=== PATIENT | male | born 1945 ===

== ENCOUNTER 2019-04-02 00:38 | Outpatient (CLI) | payer OTHER, SELFPAY ==
--- NOTE | 2019-04-02 10:00 | DI.NM_ITS ---
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 COMPARISON: No exams were available for comparison FINDINGS: Three-phase imaging shows mildly increased uptake left ankle in comparison with right ankle. Flow kenyon ging, immediate imaging shows mildly increased uptake in the left ankle region of the tibiotalar join t, and delayed imaging shows markedly increased uptake in the region of the tibiotalar joint on the l eft. Whole-body imaging shows mildly increased uptake in the lower lumbar spine consistent with degenerati ve change and nonspecific mildly increased uptake in left tibia compared to right tibia. No other in tense areas of increased uptake seen. The findings as described are nonspecific and could be associated with post traumatic changes or dege nerative change including Charcot arthropathy, however in the clinical setting of suspected osteomyel itis the findings would also be consistent with osteomyelitis at the region of the tibiotalar joint. Radiographs or CT are requested for correlation. White cell scan may be additionally considered.
== END 2019-04-02 00:58 ==
PROVIDERS: PCP Family Medicine; Visit Provider Orthopaedic Surgery Foot and Ankle Surgery
DX: M86.172 Other acute osteomyelitis, left ankle and foot (principal)
CPT/HCPCS: 78315

== ENCOUNTER 2019-04-09 01:03 | Outpatient (CLI) | payer OTHER, SELFPAY ==
--- NOTE | 2019-04-09 07:00 | DI.NM_ITS ---
History: CHRONIC MULTIFOCAL OSTEOMYELITIS LT ANKLE. Priors: NM BONE SCAN 3 PHASE from 04/02/2019 Examination: Dose: 20 mCi Tc-99m Ceretec Images: 1 and 3 hours after blood draw. Findings: There is a normal distribution of radiotracer uptake noted. No focal area of suspicious intense upta ke is seen. There is no increased radiotracer uptake seen in the left ankle to suggest osteomyelitis. There does appear to be slight increased radiotracer uptake in the skin, which may represent cellul itis. Impression: No findings to suggest osteomyelitis. Findings suggesting cellulitis of the left lower calf and foot . No evidence of infection in the left ankle.
== END 2019-04-09 01:23 ==
PROVIDERS: PCP Family Medicine; Visit Provider Orthopaedic Surgery Foot and Ankle Surgery
DX: L03.116 Cellulitis of left lower limb (principal)
CPT/HCPCS: 78806